=== PATIENT | male | born 1980 | race Caucasian/White ===

== ENCOUNTER 2017-06-25 17:53 | Emergency (ER) | payer MEDICAID ==
[~2017-06-25] VITALS: Ht 172.7 cm; Wt 68.9 kg
[2017-06-25] MEDS ORDERED: HYDROcodone/APAP 5/325 TABLET PO ONE (18:45)
[2017-06-25] MEDS ORDERED: HYDROcodone/APAP 5/325 TABLET ONE (18:54)
[2017-06-25 19:31] VITALS: BP 119/62
== END 2017-06-25 19:34 | disposition home or self-care (01) ==
LOC: ED 19:20
DX: S83.412A Sprain of medial collateral ligament of left knee, initial encounter (principal); S83.422A Sprain of lateral collateral ligament of left knee, initial encounter; F17.200 Nicotine dependence, unspecified, uncomplicated; X50.1XXA Overexertion from prolonged static or awkward postures, initial encounter; Y93.89 Activity, other specified; Y92.89 Other specified places as the place of occurrence of the external cause; Y99.9 Unspecified external cause status
CPT/HCPCS: 29505; 99284

== ENCOUNTER 2018-01-12 12:39 | Emergency (ER) | payer MEDICAID ==
[2018-01-12 12:50] VITALS: BP 119/87
[2018-01-12 13:18] LABS: BASOPHILS # (AUTO) 0.03 x10^3/uL (0-0.1); BASOPHILS % (AUTO) 1 % (0-1); EOSINOPHILS % (AUTO) 5 % (1-7); LYMPHOCYTES % (AUTO) 29 % (22-44); MD NO; MEAN CORPUSCULAR HEMOGLOBIN 31.2 pg (27.5-34.5); MEAN CORPUSCULAR HGB CONC 34.3 g/dL (33.2-36.2); MEAN CORPUSCULAR VOLUME 91.1 fL (81-97); MEAN PLATELET VOLUME 7.8 fL (7.4-10.4); MONOCYTES # (AUTO) 1.16 x10^3/uL (0.2-0.8); MONOCYTES % (AUTO) 20 % (2-9); NEUTROPHILS # (AUTO) 2.71 x10^3/uL (1.8-6.8); NEUTROPHILS % (AUTO) 46 % (42-75); PLATELET COUNT 231 x10^3/uL (130-400); RED BLOOD COUNT 4.68 x10^6/uL (4.38-5.82); RED CELL DISTRIBUTION WIDTH 13.6 % (9.4-14.8)
[2018-01-12] MEDS ORDERED: NAPROXEN (13:22)
[2018-01-12 13:29] LABS: INTERNATIONAL NORMALIZED RATIO 0.96 (0.93-1.1)
[2018-01-12 13:31] LABS: ALANINE AMINOTRANSFERASE 52 U/L (12-78); ALBUMIN 4.1 g/dL (3.4-5.0); ANION GAP 8 mmol/L (5-15); CALCIUM 8.6 mg/dL (8.5-10.1); CHLORIDE 106 mmol/L (98-107); CREATININE 0.92 mg/dL (0.7-1.3)
[2018-01-12 13:33] LABS: ALKALINE PHOSPHATASE 76 U/L (45-117); BILIRUBIN,TOTAL 1.2 mg/dL (0.2-1.0); TOTAL PROTEIN 7.3 g/dL (6.4-8.2)
[2018-01-12 13:41] LABS: MICROSCOPIC INDICATED
[2018-01-12 13:48] LABS: CULTURE INDICATED? NO
[2018-01-12 13:59] LABS: AMPHETAMINE SCREEN, URINE Positive (Negative); BARBITURATE SCREEN, URINE Negative (Negative); BENZODIAZEPINE SCREEN, URINE Negative (Negative); CANNABINOID SCREEN, URINE Positive (Negative); COCAINE SCREEN, URINE Negative (Negative); METHADONE SCREEN, URINE Negative (Negative); OPIATE SCREEN, URINE Negative (Negative)
== END 2018-01-12 14:34 | disposition home or self-care (01) ==
LOC: ED 14:19
DX: R47.01 Aphasia (principal); F12.10 Cannabis abuse, uncomplicated; F17.200 Nicotine dependence, unspecified, uncomplicated
CPT/HCPCS: 36415; 70450; 71045; 80053; 80307; 81001; 85025; 85610; 85730; 93005; 99285; 99406

== ENCOUNTER 2018-05-24 13:09 | Emergency (ER) | payer MEDICAID ==
[~2018-05-24] VITALS: Ht 172.7 cm; Wt 73.0 kg
[~2018-05-24 13:09] MED LIST: NAPROXEN
[2018-05-24 13:12] VITALS: BP 108/73
--- NOTE | 2018-05-24 13:27 | NUR ---
PT HERE FOR RIGHT ARM ABCESS. POSITIVE DRUG USE. PT DENIES INJECTING AT THE SITE.
[2018-05-24] MEDS ORDERED: LIDOCAINE-MPF 1%, 5ML ONE (13:30)
--- NOTE | 2018-05-24 13:51 | NUR ---
Patient/Caregiver given discharge instructions and they have confirmed that they understand the instructions. Patient ambulatory with steady gait.
== END 2018-05-24 14:03 | disposition home or self-care (01) ==
LOC: ED 13:51
DX: L02.413 Cutaneous abscess of right upper limb (principal); Z72.9 Problem related to lifestyle, unspecified
CPT/HCPCS: 10060; 99283

== ENCOUNTER 2018-05-28 15:55 | Emergency (ER) | payer MEDICAID ==
[~2018-05-28] VITALS: Ht 172.7 cm; Wt 69.0 kg
[2018-05-28 16:20] VITALS: BP 105/61
== END 2018-05-28 16:51 | disposition home or self-care (01) ==
LOC: ED 16:45
DX: L02.413 Cutaneous abscess of right upper limb (principal); F17.200 Nicotine dependence, unspecified, uncomplicated; Z72.9 Problem related to lifestyle, unspecified
CPT/HCPCS: 99281

== ENCOUNTER 2018-06-08 18:49 | Emergency (ER) | payer MEDICAID ==
[~2018-06-08] VITALS: Ht 172.7 cm; Wt 67.0 kg
[2018-06-08 19:06] VITALS: BP 103/51
--- NOTE | 2018-06-08 19:29 | NUR ---
PA AT BEDSIDE FOR ASSESSMENT
[2018-06-08] MEDS ORDERED: DIPHENHYDRAMINE 50 MG CAPSULE ONE (19:34)
[2018-06-08] MEDS ORDERED: FAMOTIDINE 20 MG TABLET ONE (19:34)
[2018-06-08] MEDS ORDERED: DIPHENHYDRAMINE 25 MG CAPSULE PO ONE (20:00)
[2018-06-08] MEDS ORDERED: FAMOTIDINE 20 MG TABLET PO ONE (20:00)
== END 2018-06-08 20:04 | disposition home or self-care (01) ==
LOC: ED 19:50
DX: T78.40XA Allergy, unspecified, initial encounter (principal); M79.672 Pain in left foot; M79.10 Myalgia, unspecified site; F17.200 Nicotine dependence, unspecified, uncomplicated; Z72.9 Problem related to lifestyle, unspecified
CPT/HCPCS: 73630; 99284; J7512; Q0163